=== PATIENT | female | born 1965 | race African-American/Black ===

== ENCOUNTER → 2024-12-16 | Outpatient (REF) | payer BC ==
[2024-12-16 13:28] LABS: HEMATOCRIT 40.1 % (36.0-47.0); HEMOGLOBIN 12.6 g/dl (12.0-15.5); MEAN CORPUSCULAR HEMOGLOBIN 27.8 pg (27.0-33.0); MEAN CORPUSCULAR HGB CONC 31.4 g/dl (32.0-36.5); MEAN CORPUSCULAR VOLUME 88.5 fl (80.0-96.0); PLATELET COUNT, AUTOMATED 171 10^3/uL (150-450); RED BLOOD COUNT 4.53 10^6/uL (4.00-5.40); WHITE BLOOD COUNT 4.9 10^3/uL (4.0-10.0)
[2024-12-16 15:26] LABS: ALBUMIN 3.9 G/DL (3.2-5.2); ALKALINE PHOSPHATASE 93 U/L (35-104); ALT/SGPT 30 U/L (7.0-40); AST/SGOT 22 U/L (<34); BILIRUBIN,TOTAL 0.5 MG/DL (0.3-1.2); BLOOD UREA NITROGEN 14 MG/DL (9-23); CALCIUM LEVEL 9.6 MG/DL (8.5-10.1); CARBON DIOXIDE LEVEL 29 MMOL/L (20-31); CHLORIDE LEVEL 106 MMOL/L (98-107); CHOLESTEROL LEVEL 255 MG/DL (<200); CHOLESTEROL RISK RATIO 3.39 (<5); CREATININE FOR GFR 0.67 MG/DL (0.55-1.30); GLOMERULAR FILTRATION RATE > 60.0 (>51); GLUCOSE, FASTING 86 MG/DL (60-100); HDL CHOLESTEROL 75.1 MG/DL (>40); LDL CHOLESTEROL 157.9 MG/DL (<100); NON-HDL-C 179.9 MG/DL; POTASSIUM SERUM 4.8 MMOL/L (3.5-5.1); SODIUM LEVEL 145 MMOL/L (136-145); THYROID STIMULATING HORMONE 1.043 uIU/ML (0.55-4.78); TOTAL PROTEIN 7.3 G/DL (5.7-8.2); TRIGLYCERIDES LEVEL 110 MG/DL (<150)
== END ==
LOC: M LAB REF 12:31
PROVIDERS: ATTEND Student in an Organized Health Care Education/Training Program
DX: Z00.01 Encounter for general adult medical examination with abnormal findings (principal)

== ENCOUNTER → 2025-02-24 | Outpatient (CLI) | payer BC | LOC: M WUC 12:00 | PROVIDERS: ATTEND Student in an Organized Health Care Education/Training Program | DX: M79.7 Fibromyalgia (principal) ==

== ENCOUNTER 2025-08-28 19:48 | Emergency (ER) | payer BC ==
[~2025-08-28] VITALS: Ht 160 cm; Wt 76.7 kg
[2025-08-28] MEDS ORDERED: METO1TAB7 PO (21:14)
[2025-08-28] MEDS ORDERED: LISI40TA10 PO (21:14)
[2025-08-28] MEDS ORDERED: CETI-24 PO (21:14)
[2025-08-28] MEDS ORDERED: ATOR40TA75 PO (21:14)
[2025-08-28] MEDS ORDERED: CHLO125TA PO (21:14)
[2025-08-28] MEDS ORDERED: FAMO40TA3 PO (21:14)
[2025-08-28] MEDS ORDERED: AMLO1TAB25 PO (21:14)
[2025-08-28] MEDS ORDERED: MELO15TA28 PO (21:14)
[2025-08-28] MEDS ORDERED: GABA-1172 PO (21:14)
[2025-08-28] MEDS ORDERED: OMEP40CA5 PO (21:14)
[2025-08-28] MEDS ORDERED: AMOX875T2 PO (21:28)
[2025-08-28] MEDS ORDERED: RABIES IMMUNE GLOBULIN 1500 INTERNATIONAL UNIT/5 ML VIAL IM.IMMUN ONE (21:35)
[2025-08-28] MEDS: RABIES IMMUNE GLOBULIN 1500 INTERNATIONAL UNIT/5 ML VIAL IM.IMMUN ONE (22:07)
[2025-08-28] MEDS: RABIES VACCINE HUMAN 2.5 INTERNATIONAL UNITS/ML VIAL (IMOVAX) IM ONE (22:08)
[2025-08-28] MEDS: AUGMENTIN 875 MG TAB PO ONE (22:08)
[2025-08-28] MEDS: NEOSPORIN TOP OINT 15 GM TOP ONE (22:08)
[2025-08-28 22:26] VITALS: BP 140/63; TEMP 98.9; O2SAT 100
== END 2025-08-28 22:38 | disposition home or self-care (01) ==
LOC: M ED 19:48
DX: Z20.3 Contact with and (suspected) exposure to rabies (principal); Z29.14 Encounter for prophylactic rabies immune globulin; Z23 Encounter for immunization; W54.0XXA Bitten by dog, initial encounter; Z79.2 Long term (current) use of antibiotics; Z79.899 Other long term (current) drug therapy

== ENCOUNTER 2025-08-31 17:15 | Emergency (ER) | payer BC ==
[~2025-08-31] VITALS: Ht 160 cm; Wt 77.0 kg
[~2025-08-31 17:15] MED LIST: AMLO1TAB25 PO; AMOX875T2 PO; ATOR40TA75 PO; CETI-24 PO; CHLO125TA PO; FAMO40TA3 PO; GABA-1172 PO; LISI40TA10 PO; MELO15TA28 PO; METO1TAB7 PO; OMEP40CA5 PO
[2025-08-31] MEDS: RABIES VACCINE HUMAN 2.5 INTERNATIONAL UNITS/ML VIAL (IMOVAX) IM ONE (18:21)
[2025-08-31 18:30] VITALS: BP 132/60; TEMP 97.4; O2SAT 98
== END 2025-08-31 18:32 | disposition home or self-care (01) ==
LOC: M ED 17:15
DX: Z20.3 Contact with and (suspected) exposure to rabies (principal); Z29.14 Encounter for prophylactic rabies immune globulin; Z23 Encounter for immunization; I10 Essential (primary) hypertension; R78.5 Finding of other psychotropic drug in blood; Z79.2 Long term (current) use of antibiotics; Z79.899 Other long term (current) drug therapy

== ENCOUNTER 2025-09-04 17:08 | Emergency (ER) | payer BC ==
[~2025-09-04] VITALS: Ht 160 cm; Wt 77.0 kg
[2025-09-04 17:11] VITALS: BP 115/55; TEMP 96.7; O2SAT 98
[2025-09-04] MEDS: RABIES VACCINE HUMAN 2.5 INTERNATIONAL UNITS/ML VIAL (IMOVAX) IM ONE (20:26)
== END 2025-09-04 20:50 | disposition home or self-care (01) ==
LOC: M ED 17:08
DX: Z20.3 Contact with and (suspected) exposure to rabies (principal); Z29.14 Encounter for prophylactic rabies immune globulin; Z23 Encounter for immunization; I10 Essential (primary) hypertension; E78.00 Pure hypercholesterolemia, unspecified; Z79.2 Long term (current) use of antibiotics; Z79.899 Other long term (current) drug therapy

== ENCOUNTER → 2025-09-09 | Outpatient (CLI) | payer BC | LOC: M LAB 11:57 | PROVIDERS: ATTEND Pain Medicine Interventional Pain Medicine | DX: M96.1 Postlaminectomy syndrome, not elsewhere classified (principal) ==

== ENCOUNTER 2025-09-11 15:54 | Emergency (ER) | payer BC ==
[~2025-09-11] VITALS: Ht 160 cm; Wt 78.7 kg
[2025-09-11 15:56] VITALS: BP 143/61; TEMP 97.4; O2SAT 97
[2025-09-11] MEDS: RABIES VACCINE HUMAN 2.5 INTERNATIONAL UNITS/ML VIAL (IMOVAX) IM ONE (17:10)
== END 2025-09-11 17:41 | disposition home or self-care (01) ==
LOC: M ED 15:54
DX: Z20.3 Contact with and (suspected) exposure to rabies (principal); Z29.14 Encounter for prophylactic rabies immune globulin; Z23 Encounter for immunization; E78.00 Pure hypercholesterolemia, unspecified; I10 Essential (primary) hypertension

== ENCOUNTER → 2025-10-08 | Outpatient (CLI) | payer BC | LOC: M PLAIMG 07:37 | PROVIDERS: ATTEND Pain Medicine Interventional Pain Medicine | DX: M54.50 Low back pain, unspecified (principal) ==